=== PATIENT | female | born 1945 | race Caucasian/White ===

== ENCOUNTER 2018-03-28 05:43 | Inpatient (IN) ==
[2018-03-28] MEDS ORDERED: Bupivacaine Liposomal PF 1.3% Inj 20 ML Vial ONE (05:57)
[2018-03-28] MEDS ORDERED: Sodium Chlor 0.9% Inj 80 ML, Bupivacaine Liposo PF 1.3% Inj 20 ML P-ARTICULR SCH ×2 (06:15)
[2018-03-28] MEDS ORDERED: Metoprolol Tartrate 25 MG Tablet PO SCH (06:15)
[2018-03-28] MEDS ORDERED: Chlorhexidine Gluconate 2% 1 Pack (2 Cloths) TOPICAL SCH (06:15)
[2018-03-28] MEDS ORDERED: Chlorhexidine 4% Topical 120 APPLIC/120 ML Bottle TOPICAL SCH (06:15)
[2018-03-28] MEDS ORDERED: fentaNYL Citrate Inj 100 MCG/2 ML Ampul ONE (06:21)
[2018-03-28] MEDS ORDERED: Famotidine PF Inj 20 MG/2 ML Vial ONE (06:22)
[2018-03-28] MEDS ORDERED: Dexmedetomidine Inj 200 MCG/2 ML Vial ONE (06:22)
[2018-03-28] MEDS ORDERED: Bupivacaine/Dextrose 0.75% Inj 2 ML Ampul ONE (06:22)
[2018-03-28] MEDS ORDERED: SODIUM CHLOR 0.9% IV.SIG SCH ×2 (07:00→10:00)
[2018-03-28] MEDS ORDERED: TRANEXAMIC ACID IV.SIG SCH ×2 (07:00→10:00)
[2018-03-28] MEDS ORDERED: ceFAZolin 2 GM Premix Inj 2 GM/50 ML PIGGYBACK IV.SIG SCH (07:00)
[2018-03-28] MEDS ORDERED: Sodium Chlor 0.9% Inj 500 ML IV.SIG SCH (07:00)
[2018-03-28] MEDS ORDERED: Post-op Orders (for Pharmacy) OTHER STA (09:15)
[2018-03-28] MEDS ORDERED: Acetaminophen 325 MG Tablet PO PRN (09:15)
[2018-03-28] MEDS ORDERED: Tranexamic Acid Inj 0 MG in Sodium Chlor 0.9% Inj 100 ML IV.SIG ONE (09:15)
[2018-03-28] MEDS ORDERED: Bisacodyl 10 MG Supp RECTAL PRN (09:15)
[2018-03-28] MEDS ORDERED: Morphine Inj 4 MG/ML Vial IV.PUSH PRN (09:15)
[2018-03-28] MEDS ORDERED: Aluminum/Magnesium/Simethacone Susp 30 ML UDC PO PRN (09:15)
[2018-03-28] MEDS ORDERED: Aspirin 325 MG Tablet PO SCH (09:15)
--- NOTE | 2018-03-28 09:28 | P.OP ---
- Preoperative Diagnosis (1) Primary osteoarthritis of right knee - Postoperative Diagnosis (1) Primary osteoarthritis of right knee Date of procedure: 03/28/18 Procedure: Right total knee arthroplasty using [place] Triathlon prosthesis (uncemented) Anesthesia: regional (Adductor canal block), local (Exparel), spinal Surgeon: Donte Kuo MD Election Supervisor: HIMANSHU Love Estimated blood loss (mL): 200 Pathology: none sent Operation and Findings: Indications and Findings: This 72-year-old woman has had long-standing right knee pain from osteoarthritis for the last 15 years. This is worsened particularly over the past 6 months. Her ambulation tolerance is down to 1 mile with pain. She has difficulty standing from a seated position and negotiating stairs. She has difficulty with activities of daily living. Treatment has included nonsteroidal anti-inflammatory agents, activity modification, intra-articular corticosteroids, platelet rich plasma injections, ambulatory aids, physical therapy and other exercises. This has not helped. Physical findings showed genuine varum with medial tenderness, crepitation, and effusion, and an antalgic gait. Radiographic findings showed severe osteoarthritis with loss of articular cartilage to [id number] in the medial compartment with large medial, lateral and patellofemoral osteophytes and articular change in all 3 compartments. Operative findings: There was tricompartmental osteoarthritis with loss of articular cartilage to [id number] with eburnation and osteophytes predominantly in the medial compartment but with osteophytes and articular cartilage damage in the lateral and patellofemoral compartments. The prosthesis used was a [place] Triathlon prosthesis. The femur was a size 5, right, cruciate retaining, uncemented. The tibial baseplate was a size 5 Tritanium with a 9 mm X3 polyethylene, cruciate retaining spacer. The patella was a size 35 mm asymmetric Tritanium backed. The patient was brought to the clean-air operating suite. A spinal anesthetic was administered as well as a regional anesthetic by adductor canal block. The position was supine with a small bolster under the hip on the operative side. A pneumatic tourniquet was applied to the upper thigh. The lower extremity was prepped with alcohol, Hibiclens and ChloraPrep and draped in the usual manner with the knee draped free. An appropriate timeout procedure was carried out. An incision was made from about 3 fingerbreadths above the superior medial pole of patella down the tibial tubercle on the medial side. The incision was deepened through the subcutaneous tissue to the retinacular structures which were exposed medially and laterally. A medial retinacular incision was made from the superior middle pole of patella down the tibial tubercle and up into the quadriceps tendon splitting it longitudinally and the medial one third. The patella was reflected. The infrapatellar fat pad was debulked. The anterior cruciate ligament was excised. Medial and lateral meniscectomies were initiated. Fenestrations were made in the distal femur and proximal tibia for intramedullary referencing guides. The distal femoral cutting guide and jig were assembled for a 5, 8 mm cut. When this was fit into position,the cutting block was stabilized with pins. The jig was removed. The distal femoral cut was then completed with the oscillating saw. The sizing guide was positioned in place along Whitesides line and the epicondylar axis and stabilized with pins. The femoral size was determined as noted above. The 4-in-1 cutting block was positioned in place. Anterior and posterior cuts were made followed by posterior and anterior chamfer cuts taking care to prevent injury to ligamentous structures. Osteophytes were trimmed from the distal femur. A bone plug was placed into the fenestration of the distal femur. The proximal tibia was exposed. The medial and lateral meniscectomies were completed. The proximal tibial cutting guide was positioned in place and stabilized with a pin for rotation. The depth of cut was verified with a stylus off the high side. The cutting block was stabilized with pins. The jig was removed. The depth of cut was verified and adjusted appropriately with the use of the spacer block. The proximal tibial cut was made with the oscillating saw taking care to prevent injury to neurovascular and ligamentous structures. Proximal tibial bone was removed. Local anesthetic was administered with Exparel in the posterior capsule. The tibial baseplate trial was positioned in place. After verifying the appropriate size, the base plate trial was positioned in place along with its spacer. The femoral component was impacted into place. The alignment was checked. The tibial baseplate was pinned in place on the tibia. Attention was directed to the patella. The patella drill guide was positioned in place for the appropriate sized patella. Patellar drilling was then carried out. The trial patella was positioned in place. The knee was taken through a range of motion which was easily 0 extension to 140 by gravity and 145 with slight pressure. The patella trial was removed. The femoral drill holes were made. The femoral trials were removed. The tibial spacer was removed. A bone plug was placed into the proximal tibia. The tibial punch was impacted through the proximal tibial punch guide. This was all removed followed by placement of the tibial drill guide. The tibial drill holes were made. The guide was removed. The cut ends of bone were cleaned with pulse lavage. The tibial baseplate was impacted into place and seated appropriately. The spacer was inserted. The the femoral component was impacted into place and seated appropriately. The patella component was seated with the patellar vice and tightened appropriately. The knee was taken through a range of motion which was comparable to the previous range of motion with excellent stability in flexion and extension and appropriate patellofemoral tracking. The remainder of the Exparel was injected throughout the knee as a local anesthetic. Drains were brought out the superior lateral aspect of the suprapatellar pouch. Wound closure commenced using 0 Vicryl interrupted [id number] sutures for the capsular and fascial structures, 2-0 Vicryl interrupted simple sutures with buried knots for the subcutaneous tissues and 4-0 Monocryl, continuous subcuticular closure for the skin. The wound was dressed with Dermabond Prineo followed by a dry sterile dressing. Sterile soft roll with a cooling pad and Hossein bandage from the base of the toes to mid thigh were applied. Patient was transferred from the operating room to the recovery room in satisfactory condition having tolerated procedure well. Counts were correct. Specimens: None. Estimated blood loss: 200 mL
--- NOTE | 2018-03-28 09:31 | P.DCO ---
- Physical Therapy Physical Therapy: Gait training Knee: Total knee, Protocol: Right, Gait training, Full weight bearing Right Lower Extremity Weight Bearing: Weight bearing as tolerated Right Lower Extremity Range of Motion: Active ROM (Active, active assisted and passive range of motion. Range of motion goal is 0 extension to 135 of flexion. Range of motion achieved in the operating room was 0 extension to 145 of flexion.) - Nursing Nursing: Dressing changes Dressing changes: Daily dressing change, Coverderm/Primapore Additional instructions: Do not remove Dermabond Prineo. - Certification Need for Home Health services: I have seen patient Carlota White on 03/28/18. My clinical findings support the need for the requested home health care services because: Need for Home Health Services: Limited mobility due to disease progression, Limited ability to care for self, High risk of falls Homebound Certification: I certify that my clinical findings support that this patient is homebound because: Homebound Certification: Post-op weakness, Unsteady gait/balance, Unsafe to leave home unassisted
[2018-03-28] MEDS ORDERED: *morphine SULFATE 4 MG/ML PERIprocedure ONLY ONE ×2 (09:40→12:08)
--- NOTE | 2018-03-28 10:49 | XR ---
EXAM DATE: 03/28/2018 10:47 AM EDT AGE/SEX: 72 years / Female INDICATIONS: Post-op right knee. CLINICAL DATA: This is the patient's initial encounter. Patient reports that signs and symptoms have been present for 1 day and indicates a pain score of Nonresponsive. MEDICAL/SURGICAL HISTORY: None. Total knee replacement, right. COMPARISON: No prior exams available for comparison. FINDINGS: AP and lateral views of the knee following arthroplasty reveals a prosthesis in anatomic alignment. F racture is not appreciated. Surgical drain is evident . CONCLUSION: Status post total knee arthroplasty. Jorge Dominguez MD FACR Electronically signed by: Jorge Dominguez MD 03/28/2018 10:48 AM EDT
[2018-03-28] MEDS ORDERED: Ketorolac Inj 30 MG/ML (IVP) Vial ONE (11:06)
--- NOTE | 2018-03-28 11:10 | P.CONFP ---
History of Present Illness Service: [facility] Service Consult date: 03/28/18 Requesting Physician: Donte Kuo Reason for Consult: Medical Management Post-operative Primary Care Provider: [facility] - Dr. Gomez Chief Complaint: right knee replacement History of Present Illness: Patient is a 72-year-old female with hypothyroidism and arthritis, and GERD who presented for scheduled right total knee replacement today. Surgery was performed by Dr. Kuo. Family medicine service was consulted given PCP is Dr. Mary Kate Anthony. At time of evaluation patient is approximately 1 hour postoperative is alert and awake. She denies any pain but feels a little stiff. She denies palpitations, chest pain, shortness of breath, fatigue. She took her last dose of Oklee Thyroid 60 mg this morning. Most recent TSH on 02/22 was normal. She is noted to take 325 mg aspirin 3 times a week at home. She is noted to be a former smoker with over 10 decades of abstinence. She is noted to 1 glass of wine nightly. Review of Systems Constitutional: Denies chills, Denies fever(s) Eyes: Denies blurry vision, Denies double vision Ears, Nose, Mouth, and Throat: Denies abnormal hearing, Denies bleeding gums, Denies sore throat Cardiovascular: Denies chest pain, Denies irregular heart rhythm, Denies shortness of breath Respiratory: Denies cough, Denies shortness of breath, Denies wheezing Gastrointestinal: Reports other (No diarrhea), Denies abdominal pain, Denies constipation, Denies difficulty swallowing, Denies nausea, Denies vomiting Genitourinary: Denies blood in urine, Denies difficulty urinating, Denies frequent nighttime urination, Denies urinary urgency Musculoskeletal: Denies back pain, Denies body aches, Denies neck pain, Denies numbness, Denies tingling Skin/Breast: Denies new lesions, Denies rash Neurologic: Denies sensory deficit, Denies tingling, Denies tremor(s) Psychiatric: Denies anxiety, Denies depression Endocrine: Denies cold intolerance, Denies excessive sweating, Denies flushing, Denies heat intolerance, Denies increased hunger, Denies increased thirst, Denies increased urination, Denies rapid, pounding, or irregular heartbeat Hematologic/Lymphatic: Denies easy bleeding, Denies easy bruising PMFSH - History History Provided By: Patient - Medical History Medical History: Medical History (Last Updated 03/18/18 @ 08:55 by Eve Chin RN) Arthritis Dental bridge present History of hysterectomy Hypothyroidism Macular degeneration Rectal prolapse Tinnitus Wears glasses Wears partial dentures - Surgical History Surgical History: Surgical History (Last Updated 03/18/18 @ 11:01 by Eve Chin RN) History of arthroscopy of left knee History of tonsillectomy and adenoidectomy - Family History Family History: Family History (Last Updated 03/28/18 @ 10:59 by Ellen Glover MD, R2) Father Esophageal cancer Other Dementia - Tobacco History Second Hand Smoke Exposure: No Tobacco Use In Past 30 Days: No Smoking Status: Former smoker Tobacco Type: Cigarettes - Alcohol History How Often Do You Have a Drink Containing Alcohol: 4 or more times a week (1 glass of wine every night) - Substance Use History Substance History: No History of Abuse - Travel History History of Recent Travel: No Recent Travel in the [place] Within the Last 8 Weeks: No Recent Travel Out of the Country Within the Last 8 Weeks: No Medications and Allergies Active Medications: Active Medications Acetaminophen (Tylenol) 650 mg PO Q6H PRN PRN Reason: Pain Less Than 3 On Scale Hydrocodone Bitart/Acetaminophen (Bellamy 7.5/325) 1 tab PO Q4H PRN PRN Reason: PAIN SCALE 4 TO 6 MODERATE Hydrocodone Bitart/Acetaminophen (Bellamy 7.5/325) 2 tab PO Q6H PRN PRN Reason: PAIN SCALE 7 TO 10 SEVERE Al Hydrox/Mg Hydrox/Simethicone (Mag-Al Plus Susp Liq) 30 ml PO Q6H PRN PRN Reason: INDIGESTION Al Hydroxide/Mg Hydroxide (Milk Of Magnesia Liq) 30 ml PO BID PRN PRN Reason: Mild Constipation Aspirin (Aspirin) 325 mg PO MOWEFR MIKE Bisacodyl (Dulcolax Supp) 10 mg RECTAL DAILY PRN PRN Reason: SEVERE CONSITIPATION Chlorhexidine Gluconate (Chlorhexidine 2% Cloth) 3 pack TOPICAL GARAGE ATTENDANT [facility] Stop: 03/31/18 06:08 Last Admin: 03/28/18 07:00 Dose: 3 pack Chlorhexidine Gluconate (Hibiclens 4% Topical) 1 applicatio TOPICAL ONCE [facility] Stop: 04/01/18 06:14 Sodium Chloride 80 ml/ (Bupivacaine Liposome 20 ml) 0 ml P-ARTICULR ONCE [facility] Last Admin: 03/28/18 07:58 Dose: 100 bag Lactated Ringer's (Lr 1000 Ml Inj) 1,000 mls @ 30 mls/hr IV.SIG .Q24H MIKE Stop: 03/31/18 06:08 Last Admin: 03/28/18 07:00 Dose: 30 mls/hr Sodium Chloride (Ns Inj) 500 mls @ 30 mls/hr IV.SIG .Q10H [facility] Stop: 03/31/18 06:08 Cefazolin Sodium/Dextrose (Ancef 2 Gm Premix Inj) 2 gm in 50 mls @ 100 mls/hr IV.SIG GARAGE ATTENDANT [facility] Stop: 04/01/18 06:59 Last Admin: 03/28/18 07:56 Dose: 100 mls/hr Tranexamic Acid 734 mg/ Sodium (Chloride) 107.34 mls @ 200 mls/hr IV.SIG ONCE MIKE Stop: 03/29/18 06:59 Last Admin: 03/28/18 07:57 Dose: 200 mls/hr Tranexamic Acid 734 mg/ Sodium (Chloride) 107.34 mls @ 200 mls/hr IV.SIG ONCE [facility] Stop: 03/29/18 09:59 Last Admin: 03/28/18 09:50 Dose: 200 mls/hr Cefazolin Sodium 1,000 mg/ (Sodium Chloride) 100 mls @ 200 mls/hr IV.SIG Q6H [facility] Stop: 03/28/18 22:29 Tranexamic Acid / Sodium (Chloride) 100 mls @ 200 mls/hr IV.SIG ONCE ONE Stop: 03/28/18 09:44 Lactated Ringer's (Lr 1000 Ml Inj) 1,000 mls @ 80 mls/hr IV.CONT .[id number] [facility] Ketorolac Tromethamine (Toradol Inj) 15 mg IV.PUSH Q6H [facility] Stop: 03/30/18 03:16 Lactulose (Lactulose Liq) 30 ml PO DAILY PRN PRN Reason: SEVERE CONSITIPATION Metoprolol Tartrate (Lopressor) 25 mg PO GARAGE ATTENDANT [facility] Stop: 03/31/18 06:08 Last Admin: 03/28/18 07:26 Dose: Not Given Miscellaneous Information (Misc Post-Op Orders (For Pharmacy)) 0 each OTHER STAT STA Stop: 03/28/18 09:16 Morphine Sulfate (Morphine Inj) 2 mg IV.PUSH Q3H PRN PRN Reason: BREAKTHROUGH PAIN Non-Formulary Medication (Magnesium [Magnesium]) 135 mg PO DAILY [facility] Non-Formulary Medication (Vit C,B-Hp-Eamwc-Lutein-Zeaxan [Preservision Areds 2] ) 1 tab PO DAILY MIKE Non-Formulary Medication (Vitamin B Complex [B-Complex]) 1 tab PO DAILY MIKE Non-Formulary Medication (Cholecalciferol (Vitamin D3) [Vitamin D3]) 5,000 unit PO MOWEFR [facility] Ondansetron HCl (Zofran Odt) 4 mg PO Q6H PRN PRN Reason: NAUSEA OR VOMITING Povidone Iodine (Betadine 5% Antisepsis Kit) 1 applicatio EACH NARE GARAGE ATTENDANT MIKE Stop: 03/31/18 06:08 Last Admin: 03/28/18 07:00 Dose: 1 applicatio Senna/Docusate Sodium (Nia-Colace) 1 tab PO BID [facility] Sennosides (Senokot) 17.2 mg PO BID PRN PRN Reason: Moderate Constipation Sodium Chloride (Ns Flush) 2 ml IV.FLUSH BID MIKE Sodium Chloride (Ns Flush) 2 ml IV.FLUSH PRN PRN PRN Reason: FLUSH AFTER USING IV ACCESS Thyroid (Oklee Thyroid) 60 mg PO DAILY MIKE Zolpidem Tartrate (Ambien) 5 mg PO HS PRN PRN Reason: INSOMNIA Allergies Allergy/AdvReac Type Severity Reaction Status Date / Time diphenhydramine Allergy Severe Tachycardia Verified 03/18/18 11:33 penicillin G Allergy Severe RASH Verified 03/18/18 11:33 Home Medications Medication Instructions Recorded Confirmed Type aspirin 325 mg PO MOWEFR 03/18/18 03/28/18 History cholecalciferol (vitamin D3) 5,000 unit PO MOWEFR 03/18/18 03/28/18 History [Vitamin D3] magnesium 135 mg PO DAILY 03/18/18 03/28/18 History thyroid (pork) [Oklee Thyroid] 60 mg PO DAILY 03/18/18 03/28/18 History vit C,J-Qb-ditdi-lutein-zeaxan 1 tab PO DAILY 03/18/18 03/28/18 History [PreserVision AREDS 2] vitamin B complex [B-Complex] 1 tab PO DAILY 03/18/18 03/28/18 History Exam Vital signs: Vital Signs 03/28/18 06:37 03/28/18 06:40 03/28/18 09:29 Temperature 98.2 F 97.6 F Pulse Rate 65 66 82 Respiratory Rate 16 20 Blood Pressure 157/77 H 89/52 L Pulse Oximetry 100 100 92 L 03/28/18 09:45 03/28/18 09:54 03/28/18 10:00 Temperature Pulse Rate 69 70 Respiratory Rate 14 15 Blood Pressure 111/59 L 96/50 L Pulse Oximetry 94 L 92 L 95 Intake & Output 03/27/18 03/28/18 03/28/18 18:59 06:59 18:59 Intake Total 1800 / 1800 Output Total 275 / 275 Balance 1525 / 1525 Weight 73.4 kg Intake: Anesthesia Amount 1800 / 1800 Output: Estimated Blood Loss 200 / 200 Wound Drainage 75 / 75 # 1 Right Anterior Knee 75 / 75 Other: Weight On Admission 73.4 kg Narrative: GENERAL: Patient is a well-appearing elderly female lying in PACU in no apparent distress. Nasal cannula noted SKIN: Warm and dry. No rashes or ecchymoses. HEAD: Atraumatic. Normocephalic. EYES: Pupils equal and round. EOMI. No scleral icterus. No injection or drainage. ENT: No nasal bleeding or discharge. Mucous membranes pink and moist. NECK: Trachea midline. No JVD. CARDIOVASCULAR: Regular rate and rhythm. No murmurs, gallops, or rubs. RESPIRATORY: No accessory muscle use. Clear to auscultation on anterior lung hauser with no wheezes or rhonchi. Breath sounds equal bilaterally. GASTROINTESTINAL: Abdomen soft, non-tender, nondistended. Hepatic and splenic margins not palpable. MUSCULOSKELETAL: The right extremity is wrapped postsurgically with postsurgical drain noted. The feet bilaterally are well perfused with 2+ DP pulses. No cyanosis or edema noted. No obvious deformities noted. Upper extremities exam normal. NEUROLOGICAL: Awake and alert. No obvious cranial nerve deficits. Motor grossly within normal limits. Normal speech. PSYCHIATRIC: Appropriate mood and affect; insight and judgment normal. Assessment and Plan - Assessment (1) Status post total right knee replacement not using cement Code(s): Z96.651 - Presence of right artificial knee joint Status: Acute Plan: Patient has a long-standing history of right knee pain from osteoarthritis. She has been following with orthopedic surgery and decision was made for elective right knee replacement. She is status post right knee total arthroplasty on 03/28, with anticipated uncomplicated postoperative course. Discharge planning pending clearance from Dr. Kuo. * Patient to be admitted to inpatient for postoperative care to include postoperative Ancef, early rehab, and pain control * Pain control and activity per orthopedic surgery, currently Toradol 50 mg IV every 6 and Bellamy 7.5 mg pain scale with laxatives * Monitor closely for postoperative complications including infection, bleeding , respiratory distress or wound complications * Expect 1-2 day hospital stay with patient discharge to home with home health care and home health PT (2) Primary osteoarthritis of right knee Code(s): M17.11 - Unilateral primary osteoarthritis, right knee Status: Resolved Plan: Plan as noted above (3) Hypothyroidism (acquired) Code(s): E03.9 - Hypothyroidism, unspecified Status: Chronic Plan: Patient with chronic history of hypothyroidism, greater than 10 year duration. She is on a stable dose of Oklee Thyroid 60 mg daily with last dose on the morning of 03/28. Will continue Oklee Thyroid while inpatient patient to continue routine follow-up after discharge. - Assessment and Plan 72-year-old female with history of hypothyroidism admitted for postoperative care following right elective knee replacement. Family medicine service consulted for medical management per expect patient to be discharged in 1-2 days with home health. Continue home meds Discussed Condition With: Dr. Laurel Self, attending Discharge Planning: Anticipate discharge to home with home health care on 03/29 if postoperative course is uncomplicated
[2018-03-28] MEDS ORDERED: Phenylephrine/NS 1000 MCG/10ML Syringe IV.PUSH ONE (15:10)
[2018-03-28] MEDS: Ketorolac Inj 30 MG/ML (IVP) Vial IV.PUSH SCH ×2 (16:04→20:23)
[2018-03-28] MEDS ORDERED: Zolpidem Tartrate 5 MG Tablet PO PRN (21:00)
[2018-03-29] MEDS: Senna/Docusate Sodium 8.6/50 MG Tablet PO SCH ×2 (01:37→11:06)
[2018-03-29] MEDS: Ketorolac Inj 30 MG/ML (IVP) Vial IV.PUSH SCH ×2 (01:41→09:33)
[2018-03-29] MEDS ORDERED: Thyroid 60 MG Tablet PO SCH (06:00)
--- NOTE | 2018-03-29 06:12 | P.PNOP ---
Subjective Interval history: Postoperative day #1 She is doing well. She has no real pain. She has "pressure" when she walks. Physical therapy notes indicate that she walked 90 feet. Her range of motion was -11 extension to 95 of flexion. Physical Exam Vital signs: Vital Signs 03/28/18 06:37 03/28/18 06:40 03/28/18 09:29 Temperature 98.2 F 97.6 F Pulse Rate 65 66 82 Respiratory Rate 16 20 Blood Pressure 157/77 H 89/52 L Pulse Oximetry 100 100 92 L 03/28/18 09:45 03/28/18 09:54 03/28/18 10:00 Temperature Pulse Rate 69 70 Respiratory Rate 14 15 Blood Pressure 111/59 L 96/50 L Pulse Oximetry 94 L 92 L 95 03/28/18 10:15 03/28/18 10:30 03/28/18 11:00 Temperature Pulse Rate 71 65 57 L Respiratory Rate 19 14 12 Blood Pressure 105/56 L 110/59 L 101/55 L Pulse Oximetry 97 96 95 03/28/18 12:00 03/28/18 13:00 03/28/18 14:00 Temperature 97.5 F L Pulse Rate 60 64 60 Respiratory Rate 12 13 13 Blood Pressure 95/58 L 91/52 L 98/51 L Pulse Oximetry 97 99 98 03/28/18 15:00 03/28/18 16:00 03/28/18 17:00 Temperature 97.4 F L Pulse Rate 74 69 75 Respiratory Rate 15 13 15 Blood Pressure 101/50 L 99/55 L 102/62 Pulse Oximetry 97 96 93 L 03/28/18 18:00 03/28/18 19:00 03/28/18 19:38 Temperature 97.9 F Pulse Rate 78 92 H 92 H Respiratory Rate 20 20 Blood Pressure 102/63 102/66 Pulse Oximetry 94 L 97 97 03/28/18 20:00 03/29/18 00:00 03/29/18 04:00 Temperature 97.3 F L 97.3 F L 97.4 F L Pulse Rate 89 82 70 Respiratory Rate 20 16 18 Blood Pressure 109/59 L 91/49 L 89/48 L Pulse Oximetry 93 L 94 L 92 L Intake & Output 03/28/18 03/28/18 03/29/18 06:59 18:59 06:59 Intake Total 1900 / 1900 100 / 100 Output Total 275 / 275 Balance 1625 / 1625 100 / 100 Weight 73.4 kg Intake: IV 100 / 100 100 / 100 Ancef Inj 1,000 MG In NS Inj 100 / 100 100 / 100 100 ML @ 200 mls/hr IV.SIG Q6H MIKE Rx#:[id number] Anesthesia Amount 1800 / 1800 Output: Estimated Blood Loss 200 / 200 Wound Drainage 75 / 75 # 1 Right Anterior Knee 75 / 75 Other: # Voids 1 1 Weight On Admission 73.4 kg Narrative: She is resting comfortably, supine in bed, in the CPM. The dressing is dry and intact. The neurovascular status is intact. - Additional findings Additional findings: Knee X-Ray 03/28/18 09:02 CONCLUSION: Status post total knee arthroplasty. Jorge Dominguez MD FACR Results - Labs Laboratory Results - last 24 hr 03/28/18 06:25 Blood Type A Negative Blood Type Recheck Required Antibody Screen Negative - Imaging Impressions Knee X-Ray 03/28/18 09:02 CONCLUSION: Status post total knee arthroplasty. Jorge Dominguez MD FACR Assessment and Plan - Ortho Post Op Day # 1 - Problem List (1) Status post total right knee replacement not using cement Code(s): Z96.651 - Presence of right artificial knee joint Status: Acute Plan: Continue postop care and PT. - Assessment and Plan Condition: Good. Orthopedically stable. DVT prophylaxis: TEDs, aspirin, sequentials. Discharge plans: Home with home health care. An appointment was scheduled through the office. Prescriptions: [place] 7.5/325 Patient is having significant pain caused by a total knee arthroplasty which will last more than 3 days. Trial of Tylenol has not helped. I believe that it is medically necessary to treat patients pain because it is affecting patients ability to perform physical therapy and activities of daily living.
--- NOTE | 2018-03-29 06:20 | P.DS ---
Date of admission: 03/28/18 05:43 Primary care physician: No Primary Care Physician Attending physician on discharge: Donte Moore Anticipated date of discharge: 03/29/18 Brief History from admission: This 72-year-old woman has had long-standing arthritis in her right knee which is worsened in the past 6 months. She has tried injections, anti-inflammatory agents, analgesics, physical therapy and exercise without improvement. Medial laxity and palpable osteophytes with crepitation on motion and an antalgic gait. X-rays showed severe osteoarthritis with loss of articular cartilage to [id number] particularly in the medial compartment. DS: Diagnosis - Discharge Diagnosis (1) Status post total right knee replacement not using cement Status: Acute (2) Hypothyroidism (acquired) Status: Chronic (3) Primary osteoarthritis of right knee Status: Resolved DS: Medications - Discharge Medications Prescriptions: hydrocodone-acetaminophen 1 tab PO Q4H PRN 7 Days #42 tab PRN Reason: Pain Scale 4 To 6 Moderate DS: Summary Hospital Course: The patient was admitted as noted above. The above noted operative procedure was carried out that day. Preoperatively prophylactic antibiotics were administered Ancef according to protocol. These were continued postoperatively. The patient also received tranexamic acid to help with hemostasis according to protocol. In the postanesthesia care unit a continuous passive motion device was initiated. Also initiated were mechanical methods of DVT prophylaxis in the form of ERIKA stockings and sequentials. Physical therapy was initiated on the day of surgery. On postoperative day #1 physical therapy continued. The use of the continuous passive motion device continued. DVT prophylaxis with aspirin 325 mg daily was initiated at this time. The patient continued physical therapy throughout the hospitalization. The distance walked and range of motion improved throughout the hospitalization. The patient was discharged on postoperative day 1 with the disposition being to home with home health care. An appointment for follow-up was made prior to admission. - Time Spent with Patient Total time spent providing and/or coordinating discharge services: - Quality: VTE Deep Vein Thrombosis/Pulmonary Embolism Present on Admission: No Exam Vital signs: Vital Signs 03/28/18 06:37 03/28/18 06:40 03/28/18 09:29 Temperature 98.2 F 97.6 F Pulse Rate 65 66 82 Respiratory Rate 16 20 Blood Pressure 157/77 H 89/52 L Pulse Oximetry 100 100 92 L 03/28/18 09:45 03/28/18 09:54 07/09/18 10:00 Temperature Pulse Rate 69 70 Respiratory Rate 14 15 Blood Pressure 111/59 L 96/50 L Pulse Oximetry 94 L 92 L 95 03/28/18 10:15 03/28/18 10:30 03/28/18 11:00 Temperature Pulse Rate 71 65 57 L Respiratory Rate 19 14 12 Blood Pressure 105/56 L 110/59 L 101/55 L Pulse Oximetry 97 96 95 03/28/18 12:00 03/28/18 13:00 03/28/18 14:00 Temperature 97.5 F L Pulse Rate 60 64 60 Respiratory Rate 12 13 13 Blood Pressure 95/58 L 91/52 L 98/51 L Pulse Oximetry 97 99 98 03/28/18 15:00 03/28/18 16:00 03/28/18 17:00 Temperature 97.4 F L Pulse Rate 74 69 75 Respiratory Rate 15 13 15 Blood Pressure 101/50 L 99/55 L 102/62 Pulse Oximetry 97 96 93 L 03/28/18 18:00 03/28/18 19:00 03/28/18 19:38 Temperature 97.9 F Pulse Rate 78 92 H 92 H Respiratory Rate 20 20 Blood Pressure 102/63 102/66 Pulse Oximetry 94 L 97 97 03/28/18 20:00 03/29/18 00:00 03/29/18 04:00 Temperature 97.3 F L 97.3 F L 97.4 F L Pulse Rate 89 82 70 Respiratory Rate 20 16 18 Blood Pressure 109/59 L 91/49 L 89/48 L Pulse Oximetry 93 L 94 L 92 L Intake & Output 03/28/18 03/28/18 03/29/18 06:59 18:59 06:59 Intake Total 1900 / 1900 100 / 100 Output Total 275 / 275 Balance 1625 / 1625 100 / 100 Weight 73.4 kg Intake: IV 100 / 100 100 / 100 Ancef Inj 1,000 MG In NS Inj 100 / 100 100 / 100 100 ML @ 200 mls/hr IV.SIG Q6H MIKE Rx#:[id number] Anesthesia Amount 1800 / 1800 Output: Estimated Blood Loss 200 / 200 Wound Drainage 75 / 75 # 1 Right Anterior Knee 75 / 75 Other: # Voids 1 1 Weight On Admission 73.4 kg Narrative: She is resting comfortably, supine in bed, in the CPM. The dressing is dry and intact. The neurovascular status is intact. Results Procedures completed during hospitalization: Right total knee replacement with [place] Triathlon prosthesis (uncemanted) Labs on day of discharge: Labs from last 24 hours 03/28/18 06:25 Blood Type A Negative Blood Type Recheck Required Antibody Screen Negative - Impressions ITS Impressions Knee X-Ray 03/28/18 09:02 CONCLUSION: Status post total knee arthroplasty. Jorge Dominguez MD FACR Discharge Plan - Discharge Disposition Patient Disposition: /Home Health Service - Discharge Condition Condition: Stable - Discharge Order Discharge Orders: Discharge Order (Routine); Ordered 03/29/18 Ordered By: Donte Moore - Discharge Details Anticipated Discharge Date: 03/29/18 - Physicians Team Primary Care Provider: Primary Care Tianna Liu Attending Provider: Donte Moore Other Providers: Laurel Self MD - Rxs /Orders / Referrals /Forms Prescriptions: New hydrocodone-acetaminophen 7.5-325 mg Tablet 1 tab PO Q4H PRN (Reason: Pain Scale 4 To 6 Moderate) 7 Days Qty: 42 RF: 0 Continue aspirin 325 mg Tablet 325 mg PO MOWEFR cholecalciferol (vitamin D3) [Vitamin D3] 5,000 unit Tablet 5,000 unit PO MOWEFR magnesium 200 mg Tablet 135 mg PO DAILY thyroid (pork) [[place] Thyroid] 60 mg Tablet 60 mg PO DAILY vit C,R-Vt-mwxeg-lutein-zeaxan [PreserVision AREDS 2] [id number] mg-unit-mg -mg Capsule 1 tab PO DAILY vitamin B complex [B-Complex] Tablet 1 tab PO DAILY Ambulatory Orders / Order Sets / DME: Walker With Front Wheels (1 each) (Routine) Location: Determined by Patient Ordered By: Ellen Glover Referrals: Donte Moore MD [Physician] - See Instructions Mary Kate Christiansen MD, R3 [FAMILY MEDICINE] - See Instructions (We recommend follow up with a provider at [facility] within 1 week of discharge.) UNKNOWN, [Non-Staff] - See Instructions - Discharge Instructions Additional Instructions: KEEP YOUR FOLLOWUP APPOINTMENT WITH DR. MOORE. - Post Discharge Care Plan Care Plan Goals: Your Health Problems: Goals to Promote Your Health: * To prevent worsening of your condition * To maintain your health at the optimal level Directions to Meet Your Goals: * Take your medications as prescribed * Follow your dietary instruction * Follow activity as directed * Keep your appointments as scheduled * Take your immunizations and boosters as scheduled * If your symptoms worsen call your PCP * If no PCP go to Urgent Care or Emergency Room Smoking is dangerous to your health. Avoid second hand smoke. You may reach the 24-hour crisis hotline for domestic abuse at 7-194-998- 1609.Your Health Problems: Goals to Promote Your Health: * To prevent worsening of your condition * To maintain your health at the optimal level Directions to Meet Your Goals: * Take your medications as prescribed * Follow your dietary instruction * Follow activity as directed * Keep your appointments as scheduled * Take your immunizations and boosters as scheduled * If your symptoms worsen call your PCP * If no PCP go to Urgent Care or Emergency Room Smoking is dangerous to your health. Avoid second hand smoke. You may reach the 24-hour crisis hotline for domestic abuse at . * * Discharge Care Plan Goals for Total Knee Replacement You have undergone knee replacement surgery. Your doctor replaced your painful joint with an artificial joint to relieve pain and restore movement. Here are some goals to help you heal well. Directions to Meet your Goals: 1. Activity & Exercises: * Take pain medicine as directed by your doctor. * Sit in chairs with arms. The arms make it easier for you to stand up or sit down. * Dont sit for more than 30 to 45 minutes at one time. * Nap if you are tired, but dont stay in bed all day. * Sleep with a pillow under your ankle, not your knee. Be sure to change the position of your leg during the night. * Wear the support stockings you were given in the hospital as directed by your surgeon. 2. Prevent Falls/Injury: The little to successful recovery is movement with walking and exercising your knee as directed by your doctor. * Arrange your household to keep the items you need handy. Keep everything else out of the way. * Remove items that may cause you to fall, such as throw rugs and electrical cords. * Use nonslip bath mats, grab bars, an elevated toilet seat, and a shower chair in your bathroom * Sit on a shower stool or chair when you shower to keep from falling. * Until your balance, flexibility, and strength improve, use a cane, crutches, a walker, handrails, or someone to help you. * Keep your hands free by using a backpack, corrine pack, apron, or pockets to carry things * Walk up and down stairs with support. Try one step at a time. Use the railing if possible. * Dont drive until your doctor says its OK. * Dont drive while you are taking opioid pain medicine. 3. Precautions: * Prevent infection. Any infection will need to be treated immediately. Call your doctor right away if you think you might have an infection. * Tell your dentist that you have an artificial joint and take antibiotics as prescribed before any dental work. * Tell all your healthcare providers about your artificial joint before any medical procedure. * Maintain a healthy weight. Get help to lose any extra pounds. Added body weight puts stress on the knee. * Your medications may include blood-thinning medicine to prevent blood clots or antibiotics to prevent infection-prevent any falls or cuts 4. Incision Care: * Prevent infection by washing your hands often. If an infection occurs, it will need to be treated right away. * Call your doctor right away if you think you may have an infection. Symptoms include a fever or an incision that leaks white, green, or yellow fluid. * Don't soak your incision in water until your doctor says its OK. This means no hot tubs, bathtubs, or swimming pools. * Follow your doctor's instructions for changing the dressing. * Dont rub the incision, or apply creams or lotions to it. * If you notice any redness or drainage around the bandage site, contact your surgeon's office immediately. 5. Follow-Up: Do Not miss your follow-up appointment. Keep up with all your appointments and yearly check ups When to call your doctor: Call your doctor right away if you have: Fever of 100.4F (38C) or higher, or as directed by your doctor Shaking chills Stiffness, or inability to move the knee Increased swelling in your leg Increased redness, tenderness, or swelling in or around the knee incision Drainage from the knee incision Increased knee pain Call 911: Call 911 right away if you have: Chest pain Shortness of breath Any pain or tenderness in your calf
[2018-03-29] MEDS ORDERED: MAGNESIUM PO SCH (09:00)
[2018-03-29] MEDS ORDERED: Vitamin B Complex/Vit C/Folic Tablet PO SCH (09:00)
--- NOTE | 2018-03-29 09:47 | P.PNFP ---
Subjective Interval history: Ms. White is doing very well today. When asked how she was doing she quickly said she wanted to go home. She is not taking much in the way of pain medicine and is using ice pack and doing very well with. She is breathing well eating well no chest pain abdominal pain or other problems. Results - Imaging Impressions Knee X-Ray 03/28/18 09:02 CONCLUSION: Status post total knee arthroplasty. Jorge Dominguez MD FACR Physical Exam Vital signs: Vital Signs 03/28/18 09:54 03/28/18 10:00 03/28/18 10:15 Temperature Pulse Rate 70 71 Respiratory Rate 15 19 Blood Pressure 96/50 L 105/56 L Pulse Oximetry 92 L 95 97 03/28/18 10:30 03/28/18 11:00 03/28/18 12:00 Temperature 97.5 F L Pulse Rate 65 57 L 60 Respiratory Rate 14 12 12 Blood Pressure 110/59 L 101/55 L 95/58 L Pulse Oximetry 96 95 97 03/28/18 13:00 03/28/18 14:00 03/28/18 15:00 Temperature Pulse Rate 64 60 74 Respiratory Rate 13 13 15 Blood Pressure 91/52 L 98/51 L 101/50 L Pulse Oximetry 99 98 97 03/28/18 16:00 03/28/18 17:00 03/28/18 18:00 Temperature 97.4 F L Pulse Rate 69 75 78 Respiratory Rate 13 15 20 Blood Pressure 99/55 L 102/62 102/63 Pulse Oximetry 96 93 L 94 L 03/28/18 19:00 03/28/18 19:38 03/28/18 20:00 Temperature 97.9 F 97.3 F L Pulse Rate 92 H 92 H 89 Respiratory Rate 20 20 Blood Pressure 102/66 109/59 L Pulse Oximetry 97 97 93 L 03/29/18 00:00 03/29/18 00:30 03/29/18 04:00 Temperature 97.3 F L 97.4 F L Pulse Rate 82 70 Respiratory Rate 16 16 18 Blood Pressure 91/49 L 89/48 L Pulse Oximetry 94 L 92 L 03/29/18 08:00 Temperature 97.6 F Pulse Rate 65 Respiratory Rate 16 Blood Pressure 119/58 L Pulse Oximetry 95 Intake & Output 07/09/18 07/10/18 07/10/18 18:59 06:59 18:59 Intake Total 1900 / 1900 100 / 100 Output Total 275 / 275 Balance 1625 / 1625 100 / 100 Intake: IV 100 / 100 100 / 100 Ancef Inj 1,000 MG In NS Inj 100 / 100 100 / 100 100 ML @ 200 mls/hr IV.SIG Q6H MIKE Rx#:[id number] Anesthesia Amount 1800 / 1800 Output: Estimated Blood Loss 200 / 200 Wound Drainage 75 / 75 # 1 Right Anterior Knee 75 / 75 Other: # Voids 1 1 - Constitutional no acute distress, average body habitus, cooperative - Routine HEENT Exam Head: Present: normocephalic, atraumatic Eye: Present: EOMI - Routine Neck Exam Present: supple, full ROM - Routine Respiratory Exam Absent: accessory muscle use, patient mechanically ventilated, decreased breath sounds, respiratory distress - Routine Cardiovascular Exam Present: RRR. Absent: murmur, gallop - Routine Abdominal Exam Present: soft. 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 She has been following with orthopedic surgery and decision was made for elective right knee replacement. She is status post right knee total arthroplasty on 03/28, with anticipated uncomplicated postoperative course. Discharge planning pending clearance from Dr. Kuo. * Patient was admitted to inpatient for postoperative care to include postoperative Ancef, early rehab, and pain control * Pain control and activity per orthopedic surgery, currently Toradol 50 mg IV every 6 and [place] 7.5 mg pain scale with laxatives * Monitor closely for postoperative complications including infection, bleeding , respiratory distress or wound complications * she is ready to go home today (2) Primary osteoarthritis of right knee Code(s): M17.11 - Unilateral primary osteoarthritis, right knee Status: Resolved Plan: Plan as noted above (3) Hypothyroidism (acquired) Code(s): E03.9 - Hypothyroidism, unspecified Status: Chronic Plan: Patient with chronic history of hypothyroidism, greater than 10 year duration. She is on a stable dose of [place] Thyroid 60 mg daily with last dose on the morning of 03/28. Will continue [place] Thyroid while inpatient patient to continue routine follow-up after discharge. - Assessment and Plan 72-year-old female with history of hypothyroidism admitted for postoperative care following right elective knee replacement. Family medicine service consulted for medical management per expect patient to be discharged today with home health. Continue home meds
== END 2018-03-29 15:11 | disposition home health service (06) ==
LOC: HSDI 05:43 → N06 19:51
PROVIDERS: ADMIT Orthopaedic Surgery; ATTEND Orthopaedic Surgery